=== PATIENT | female | born 1950 | race Caucasian/White ===

== ENCOUNTER 2024-04-23 17:02 | Emergency (ER) | payer MEDICARE ==
[~2024-04-23] VITALS: Ht 152.4 cm; Wt 59.1 kg
[2024-04-23] MEDS: ketorolac trometh 15mg/ml vial 15 MG/ML ML IM ONE (18:02)
[2024-04-23 18:20] VITALS: BP 148/70; PULSE 66; RESP 15; TEMP 98.1; O2SAT 98
== END 2024-04-23 18:26 | disposition home or self-care (01) ==
LOC: ER 17:03
DX: M23.92 Unspecified internal derangement of left knee (principal); Z88.1 Allergy status to other antibiotic agents
CPT/HCPCS: 29505; 73564; 96372; 99283; J1885